=== PATIENT | female | born 1965 | race Caucasian/White ===

== ENCOUNTER → 2017-07-15 | Outpatient (CLI) | payer MEDICAID ==
[2006-02-06 16:45] VITALS: TEMP 97.6
== END ==
LOC: MHCPAIN 14:08
DX: G89.29 Other chronic pain (principal); M47.27 Other spondylosis with radiculopathy, lumbosacral region; M53.3 Sacrococcygeal disorders, not elsewhere classified; G57.00 Lesion of sciatic nerve, unspecified lower limb
CPT/HCPCS: G0463